=== PATIENT | male | born 1960 | race Caucasian/White ===

== ENCOUNTER → 2017-06-25 | Outpatient (CLI) | payer MEDICARE, BC | LOC: LAB 08:15 | DX: R74.8 Abnormal levels of other serum enzymes (principal) ==

== ENCOUNTER → 2019-09-18 | Outpatient (CLI) | payer MEDICARE, BC ==
[2019-09-18 10:28] LABS: EOS # 0.1 (0.04-0.40); EOS % 1.8 % (0.0-4.0); HEMATOCRIT 46.4 % (42.0-52.0); HEMOGLOBIN 15.3 g/dL (13.5-18.0); LYMPH# 1.3 (1.50-4.00); MEAN CELL VOLUME 88 fl (78-100); MEAN CORPUSCULAR HEMOGLOBIN 29 pg (27-31); MEAN CORPUSCULAR HGB CONC 33 g/dL (33-37); MEAN PLATELET VOLUME 8.6 fl (7.4-10.4); MONO # 0.7 (0.20-0.80); NEU # 4.1 (1.40-6.50); PLATELET COUNT 279 K/mm3 (130-400); RED BLOOD COUNT 5.28 M/mm3 (4.20-5.60); RED CELL DISTRIBUTION WIDTH 13.9 % (11.5-14.5); WHITE BLOOD COUNT 6.2 K/mm3 (4.8-10.8)
[2019-09-18 10:40] LABS: ALBUMIN 4.1 g/dL (3.5-5.0); POTASSIUM 4.3 mmol/L (3.5-5.1)
[2019-09-18 10:41] LABS: CALCIUM 9.7 mg/dL (8.3-10.5)
[2019-09-18 10:42] LABS: TOTAL PROTEIN 7.3 g/dL (6.4-8.3)
[2019-09-18 10:44] LABS: TOTAL BILIRUBIN 0.5 mg/dL (0.2-1.2)
== END ==
LOC: LAB 10:07
PROVIDERS: Internal Medicine
DX: I10 Essential (primary) hypertension (principal); E10.9 Type 1 diabetes mellitus without complications; I25.10 Atherosclerotic heart disease of native coronary artery without angina pectoris; I48.91 Unspecified atrial fibrillation

== ENCOUNTER → 2022-01-06 | Outpatient (CLI) | payer MEDICARE, BC | LOC: LAB 21:10 | DX: Z20.822 Contact with and (suspected) exposure to COVID-19 (principal) ==

== ENCOUNTER → 2023-11-04 | Outpatient (CLI) | payer MEDICARE, BC ==
[~2023-11-04] MED LIST: ASPIRIN E.C. 8181 MG; COREG 25MG25 MG/TAB; D3-200050 MCG; DAILY VALUE1 EACH; GRAPESEED; LIPITOR20 M2; NIACINAMIDE; NORVASC 5MG5 MG/TAB; PHARMASSURE MA500 MG; PROGRAF 0.5MG0.5 MG; ZORTRESS0.5 MG
== END ==
LOC: RAD 10:18
DX: R55 Syncope and collapse (principal)
CPT/HCPCS: A9575

== ENCOUNTER → 2023-11-06 | Outpatient (CLI) | payer MEDICARE, BC | LOC: RAD 11-04 10:30 → VAS 07:19 | DX: I65.22 Occlusion and stenosis of left carotid artery (principal); R55 Syncope and collapse ==

== ENCOUNTER → 2024-11-27 | Outpatient (CLI) | payer MEDICARE, BC | LOC: VAS 15:44 | DX: I35.0 Nonrheumatic aortic (valve) stenosis (principal); I25.10 Atherosclerotic heart disease of native coronary artery without angina pectoris ==